=== PATIENT | female | born 1970 | race African-American/Black ===

== ENCOUNTER 2016-06-28 16:07 | Inpatient (IN) | payer OTHER ==
--- NOTE | ~2016-06-28 | HP ---
Unit #: [id number] #: [id number] Patient: LAURA HENDERSON [id number] [place] [address] [id number] I MR#: [id number] NAME: LAURA HENDERSON. ROOM: 73 Age: 45 Sex: F Admission Date: 06/28/2016 : 1970 Attending Physician: Edwin Rainey M.D. Admitting Physician: Edwin Rainey M.D. Primary Care Physician: Mar Sanchez M.D. HISTORY AND PHYSICAL HISTORY OF PRESENT ILLNESS Laura is a 45 year old admitted to [facility] because of her abuse of alcohol. She is detoxing. PAST MEDICAL HISTORY 1. Long history of alcohol abuse. 2. Rheumatoid arthritis by patient's report. 3. High blood pressure. PAST SURGICAL HISTORY Nothing reported. ALLERGIES No known drug allergies. SOCIAL HISTORY Smokes 1 pack per day. Drinks at least 2 pints of liquor on a daily basis and denies illicit drug use. FAMILY HISTORY Medically noncontributory. REVIEW OF SYSTEMS CONSTITUTIONAL: No fever or chills. HEENT: Denies any sore throat, ear pain or runny nose. CARDIOVASCULAR: Denies chest pain, irregular heart rhythm or palpitations. CHEST: Denies shortness of breath or cough. No hemoptysis. GASTROINTESTINAL: Denies nausea, vomiting, diarrhea or chronic constipation. ENDOCRINE: Denies history of increased thirst or urination. No recent significant weight loss or gain. GENITOURINARY: Denies dysuria, frequency, or hematuria. SKIN: Denies any rashes. HEMATOLOGIC: Denies history of increased bleeding or bruising. MUSCULOSKELETAL: Denies any hot, swollen joints. No generalized muscle pain. NEUROLOGIC: Denies problems with vision or speech. No frequent, severe headaches. No numbness, tingling or weakness in any extremities. Denies loss of bladder or bowel control. CURRENT MEDICATIONS 1. Detox protocol. 2. Winters one tab q.i.d. p.r.n. Unit #: [id number] #: [id number] Patient: LAURA HENDERSON PHYSICAL EXAMINATION GENERAL: Alert, well-nourished, in no apparent distress. VITAL SIGNS: Blood pressure 124/88, heart rate 88, respirations 16, temperature 98.6. WEIGHT: 147. HEIGHT: 5 feet 3 inches. SKIN: Warm and dry without rash or lesion. HEENT: Normocephalic. TMs not viewed. Oral and nasal passages clear. Conjunctivae clear. PERRLA. EOMs intact. NECK: Supple without lymphadenopathy or thyromegaly. HEART: Regular rate and rhythm without murmur. LUNGS: Clear. ABDOMEN: Soft, nontender. : Not done. EXTREMITIES: No evidence of cyanosis, clubbing or edema. Moves all without focal deficit. NEUROLOGICAL: Grossly within normal limits. Cranial Nerves: II: Visual kerns are intact. III, IV AND : Extraocular movements are intact. Pupils are equal, round and reactive to light. V: Facial sensation is grossly normal. VII: Facial movements and expression are normal. VIII: Auditory acuity grossly intact. IX, X: Uvula is midline. Phonation is normal. XI: Patient shrugs shoulders and turns head normally. XII: Tongue protrudes in the midline. Sensory and Motor Function: Sensory and motor sensation is grossly normal. Motor: moves all extremities well. Coordination: Gait is normal. Deep Tendon Reflexes: Intact. IMPRESSION 1. Psychiatric admission. 2. High blood pressure, not controlled on admission. She is admitted on no blood pressure medications. RECOMMENDATIONS PSYCHIATRIC: Per psychiatrist. MEDICAL: 1. See no contraindications to participate in facility's activities. 2. Detox per protocol. 3. Monitor blood pressure q. shift. Start Norvasc 5 mg 1 p.o. daily. Patient will need to follow up with PCP. MEDICAL PROGNOSIS Good. MEDICAL CONDITION Stable. Dictated by... Kai KhanAEsdras. for Suresh Hernandez/dayami TD: 06/29/2016 16:02 Unit #: [id number] #: [id number] Patient: LAURA HENDERSON JOB #: [id number] HISTORY AND PHYSICAL Page 1 of 1 X Gloria Christian HISTORY AND PHYSICAL
--- NOTE | ~2016-06-28 | PN ---
Unit #: [id number] #: [id number] Patient: LATESHA HENDERSON [id number] [facility] [address] [place] [address] [id number] I MR#: [id number] NAME: LATESHA HENDERSON. ROOM: [facility] Age: 45 Sex: F Admission Date: 06/28/2016 : 1970 Attending Physician: Edwin Rainey M.D. Admitting Physician: Edwin Rainey M.D. Primary Care Physician: Suresh Clarke PROGRESS NOTES DATE OF SERVICE 06/29/2016 DISCUSSION Ms. Sanchez is a 45-year-old female seen on 06/29/2016. Patient interviewed, chart reviewed, I obtained information from nursing staff. Patient continues to be sad, dysphoric, anxious, withdrawn, having withdrawal symptoms. Vital signs: Temperature 99, 88, 125/88. COMPLETE REVIEW OF SYSTEMS Unremarkable. MENTAL STATUS EXAMINATION GENERAL APPEARANCE: Patient dressed casually. ATTENTION SPAN AND CONCENTRATION: Fair. Oriented in time, place and person. MOOD AND AFFECT: Sad, dysphoric. SPEECH: Monotone. THOUGHT PROCESS: Paige. Patient denied any thoughts of harming self or others, but sad, depressed. RECENT AND REMOTE MEMORY: Poor. INSIGHT AND JUDGMENT: Poor. DIAGNOSES Alcohol use disorder, severe Mood disorder, NOS ASSESSMENT/PLAN Advised to start patient on Celexa 20 mg daily, Vistaril 25 mg three times a day for anxiety and trazodone 50 mg at bedtime for sleep. If needed, consider further adjustment on medication. Continue with the inpatient program. Dictated by... Suresh Arias/cathi Unit #: [id number] #: [id number] Patient: LATESHA HENDERSON TD: 06/30/2016 04:16 JOB #: [id number] [facility] PROGRESS NOTES Page 1 of 1 X Edwin Rainey MD PROGRESS NOTE
--- NOTE | ~2016-06-28 | PN ---
Unit #: [id number] #: [id number] Patient: LATESHA HENDERSON [id number] [facility] [address] [place] [address] [id number] I MR#: [id number] NAME: LATESHA HENDERSON ROOM: [facility] Age: 45 Sex: F Admission Date: 06/28/2016 : 1970 Attending Physician: Edwin Rainey M.D. Admitting Physician: Edwin Rainey M.D. Primary Care Physician: Suresh Clarke PROGRESS NOTES DATE 07/02/2016 DISCUSSION Ms. Sanchez is a 45-year-old female. The patient seen on 07/02/2016. The patient interviewed, chart reviewed. Obtained information from nursing staff. The patient continues to report having anxiety, trouble sleeping but denied any suicidal or homicidal ideation. Complete review of systems unremarkable. MENTAL STATUS EXAMINATION General appearance, the patient dressed casually. Attention span and concentration fair. Oriented to time, place and person. Mood and affect sad, dysphoric. Speech monotone. Thought process concrete. The patient denied any thoughts of harming self or others. Recent and remote memory poor. Insight and judgement poor. DIAGNOSES Alcohol use disorder severe Mood disorder NOS ASSESSMENT/PLAN Advise to continue with current medication and detox protocol. If needed consider further adjustment of medication. Dictated by... Suresh Arias/noreen TD: 07/03/2016 04:37 JOB #: [id number] Unit #: [id number] #: [id number] Patient: LATESHA HENDERSON PROGRESS NOTES Page 1 of 1 X Edwin Rainey MD X PROGRESS NOTE
--- NOTE | ~2016-06-28 | PN ---
Unit #: [id number] #: [id number] Patient: LATESHA HENDERSON [id number] [facility] [address] [place] [address] [id number] I MR#: [id number] NAME: LATESHA HENDERSON ROOM: [facility] Age: 45 Sex: F Admission Date: 06/28/2016 : 1970 Attending Physician: Edwin Rainey M.D. Admitting Physician: Edwin Rainey M.D. Primary Care Physician: Suresh Clarke PROGRESS NOTES DATE OF SERVICE 06/30/2016 DISCUSSION Ms. Sanchez is a 45-year-old female. The patient interviewed, chart reviewed. Obtained information from nursing staff. The patient was compliant, cooperative. Mood sad, dysphoric. Reported still having withdrawal symptom, restlessness, and severe anxiety. The patient reported mood is anxious, nervous, labile. Severe anxiety. Complete Review of Systems: Unremarkable. MENTAL STATUS EXAMINATION General Appearance: The patient dressed casually. Attention span, concentration: Fair. Oriented in place and person. Mood and affect: Sad, dysphoric. Speech: Monotone. Thought process: [place]. The patient denied any thoughts of harming self or others but guarded. Recent and remote memory: Poor. Insight and judgment: Poor. DIAGNOSIS Alcohol use disorder, severe, F10.20 ASSESSMENT/PLAN Advised to continue with current medication and therapeutic protocol. If needed, consider further adjustment of medication. Dictated by... Suresh Arias/michelle TD: 07/01/2016 06:56 JOB #: [id number] Unit #: [id number] #: [id number] Patient: LATESHA HENDERSONJESÚS PROGRESS NOTES Page 1 of 1 X Edwin Rainey MD PROGRESS NOTE
--- NOTE | ~2016-06-28 | PA ---
Unit #: [id number] #: [id number] Patient: LATESHA HENDERSON [id number] [place] [address] [id number] I MR#: [id number] NAME: LATESHA HENDERSON ROOM: 73 Age: 45 Sex: F Admission Date: 06/28/2016 : 1970 Date of Assessment: Attending Physician: Edwin Rainey M.D. Admitting Physician: Edwin Rainey M.D. Primary Care Physician: Mar Sanchez M.D. PSYCHIATRIC ASSESSMENT INFORMANTS The patient's reliability, fair; chart reliability, good. CHIEF COMPLAINT Depression and alcohol abuse. HISTORY OF PRESENT ILLNESS Ms. Sanchez is a 45-year-old female, admitted with the above-mentioned complaint. The patient is currently unemployed, has a son 11. The patient presented with the alcohol use and reported drinking at least 2 pints a day for the last year. The patient reported that she is uncertain how much actually drinks because she blacks out after the second bottle. The patient scored for 15 on CIWA score, increased blood pressure, skin crawling, nausea, tremor, anxiety, headache. The patient reported poor sleep, depressed mood, loss of appetite, loss of job on Sunday, missing work, not remembering things. The patient reported feeling sad and depressed, but denied any suicidal or homicidal ideation. The patient reported started feeling depressed after the of her father 2 years ago. The patient needing inpatient admission at this time for psychiatric stabilization. PAST PSYCHIATRIC HISTORY Remarkable for history of outpatient services, details unknown at this time. FAMILY HISTORY AND SOCIAL HISTORY The patient has a good support system. History of substance abuse in father according to the intake reports. No known history of any abuse or legal problem. MEDICAL HISTORY Remarkable for hypertension, rheumatoid arthritis, chronic pain. MEDICATIONS The patient is on Lortab 10 mg q.i.d., amitriptyline 25 mg p.r.n., multivitamin, lisinopril/hydrochlorothiazide combination for hypertension. ALLERGIES No known drug allergies. SUBSTANCE ABUSE HISTORY The patient reported tobacco use, age of onset 16; alcohol, age of onset 13; marijuana, age of onset 19; crack cocaine, age of onset 19. Longest Unit #: [id number] #: [id number] Patient: LATESHA HENDERSON period of sobriety 9 months. Last period of sobriety was 11 years ago. The patient reported history of blackouts. No history of any HIV, hepatitis, history of withdrawal symptoms. No history of any IV drug use. Currently, reporting anxiety, grieving, insomnia, tremor, racing thoughts. REVIEW OF SYSTEMS HEENT: Eyes, clear. Ears, nose, mouth, and throat; clear. CARDIOVASCULAR: Unremarkable. RESPIRATORY: Unremarkable. GI: Unremarkable. : Unremarkable. SKIN: Unremarkable. LYMPH NODE: Unremarkable. NEUROLOGIC: Unremarkable. ENDOCRINE: Unremarkable. HEMATOLOGIC: Unremarkable. ALLERGIC/IMMUNOLOGIC: Unremarkable. MUSCULOSKELETAL: Muscle strength and tone, no atrophy or abnormal movement. Gait normal except as mentioned above. MENTAL STATUS EXAMINATION CONSTITUTIONAL: Measurement of vital signs; temperature 99, pulse 88, respirations 20, 100% oxygen saturation, blood pressure 125/88. Height 5 feet 3 inches, weight 147 pounds. GENERAL APPEARANCE: The patient dressed casually. The patient did not show any facial deformity. MUSCULOSKELETAL: Please see above. PSYCHIATRIC EXAMINATION Description of speech, regular rate. Description of thought process, goal directed. Description of association, intact. Description of abnormal psychotic thinking; the patient denied any hallucination or delusions or any suicidal or homicidal ideation, but sad and depressed mood. Description of the patient's judgment; concerning everyday activity, poor. Social situation, poor. Concerning psychiatric condition, poor. Complete mental status examination; oriented in time, place, and person. Recent and remote memory, fair. Attention span and concentration, fair. Language, able to name object and repeat phrases. Fund of knowledge, aware of current event and passive vocabulary intact. Mood and affect, sad and dysphoric. Insight and judgment, fair to poor. ASSETS AND LIABILITIES Assets; the patient is articulate and able to take care of her ADL. Liability, history of depression and substance abuse. ADMITTING DIAGNOSES Psychiatric: 1. Alcohol use disorder, severe, F10.20. 2. Mood disorder, not otherwise specified, F32.9. Secondary diagnosis: Deferred. Medical diagnoses: Rheumatoid arthritis and hypertension. Stressors: Psychosocial stressors. PSYCHIATRIC PLAN AND TREATMENT GOAL 1. Advised to admit the patient on the inpatient unit. Provide safe, Unit #: [id number] #: [id number] Patient: LATESHA HENDERSON supportive, and structured environment. 2. Ordered labs; CBC, CMP, UA, and UDS. 3. Detox precautions and detox protocol. Plan to consider SSRI for depression. The patient to attend all the programing on the inpatient unit. If needed, consider change in medication. Treatment goal to attain euthymic mood, gain insight into her problem, and learn coping skills. DISCHARGE PLAN Plan to stabilize the patient and consider followup in outpatient program. ESTIMATED LENGTH OF STAY 5 days. Dictated by... Edwin Rainey M.D. LANI/horacio TD: 06/30/2016 03:04 JOB #: [id number] PSYCHIATRIC ASSESSMENT Page 1 of 1 X Edwin Rainey MD X PSYCHIATRIC ASSESSMENT
--- NOTE | ~2016-06-28 | PN ---
Unit #: [id number] #: [id number] Patient: LATESHA HENDERSON [id number] [facility] [address] [place] [address] [id number] MR#: [id number] NAME: LATESHA HENDERSON ROOM: [facility] Age: 45 Sex: F Admission Date: 06/28/2016 : 1970 Attending Physician: Edwin Rainey M.D. Admitting Physician: Edwin Rainey M.D. Primary Care Physician: Suresh Clarke PROGRESS NOTES DATE OF SERVICE: 07/01/2016 DISCUSSION Ms. Sanchez is a 45-year-old female, seen on 07/01/2016. The patient interviewed, chart reviewed, and obtained information from nursing staff. The patient was compliant, cooperative. The patient reports medication is helping her. Mood is sad, dysphoric, flat affect, withdrawn, isolative, participating in program. The patient scored 9 on CIWA score, complaining of nausea, mild tremor, anxiety, agitation, headache. REVIEW OF SYSTEMS Complete review of systems is unremarkable. MENTAL STATUS EXAMINATION General appearance, the patient dressed casually. Attention span and concentration, poor. Oriented in place and person. Mood and affect, sad, dysphoric. Speech, monotone. Thought process, concrete. The patient denied any thoughts of harming self or others. Recent and remote memory, poor. Insight and judgment, poor. DIAGNOSIS Alcohol use disorder, moderate, F10.20. ASSESSMENT AND PLAN Advised to continue with current medication and therapeutic protocol. If needed, consider further adjustment of medication. Dictated by... Suresh Arias/horacio TD: 07/03/2016 04:00 JOB #: [id number] Unit #: [id number] #: [id number] Patient: LATESHA HENDERSON PROGRESS NOTES Page 1 of 1 X Edwin Rainey MD PROGRESS NOTE
--- NOTE | ~2016-06-28 | DS ---
Unit #: [id number] #: [id number] Patient: LATESHA HENDERSON [id number] [facility] [address] [place] [address] [id number] I MR#: [id number] NAME: LATESHA HENDERSON. ROOM: 73 Age: 45 Sex: F Admission Date: 06/28/2016 : 1970 Discharge Date: 07/03/2016 Attending Physician: Edwin Rainey M.D. Primary Care Physician: Mar Sanchez M.D. DISCHARGE SUMMARY REASON FOR ADMISSION Depression and alcohol abuse. DIAGNOSTIC STUDIES LABORATORY RESULTS: Unremarkable except urine drug screen positive for benzodiazepine and opiates. HOSPITAL COURSE The patient was admitted to inpatient unit on 06/28/2016 and discharged on 07/03/2016. The patient was treated on the inpatient unit with group therapy, individual therapy, medication management, detox protocol, and detox monitoring. The patient responded well with the above modalities of treatment. Subsequently, the patient was discharged with a plan to follow up in outpatient program. DISCHARGE MEDICATIONS Doxepin 100 mg at bedtime for sleep, Vistaril 50 mg t.i.d. for anxiety. The patient to continue with her home pain medication Lortab for pain. DISCHARGE DIAGNOSES Psychiatric: Alcohol use disorder, severe, F10.20; mood disorder, not otherwise specified, F32.9. Secondary diagnosis: Deferred. Medical diagnosis: Rheumatoid arthritis, hypertension. Stressors: Psychosocial stressors. DISCHARGE INSTRUCTIONS The patient to follow up in outpatient clinic as per psych social worker. CONDITION ON DISCHARGE The patient was pleasant and cooperative. Denied any psychotic symptom or any suicidal ideation. PROGNOSIS Guarded. DIET AND ACTIVITY As tolerated. Unit #: [id number] #: [id number] Patient: LATESHA HENDERSON Dictated by... Suresh AriasC/horacio TD: 07/03/2016 17:42 JOB #: [id number] DISCHARGE SUMMARY Page 1 of 1 X Edwin Rainey MD X DISCHARGE SUMMARY
[~2016-06-28 16:07] MED LIST: ASPIRINEC PO; CERTAGEN PO; FLEXERIL PO; INDOCIN SR75 MG PO; LORTAB 10/500 T1 TAB PO; LORTAB 7.5-5001 TAB PO; ROBAXIN PO; ULTRAM PO; ZESTORETIC 10/11 TAB PO
[2016-06-29 12:35] LABS: BASOPHIL# 0.1 X10e3 (0-0.3); BASOPHIL% 0.9 % (0-2.5); EOSINOPHIL# 0.1 X10e3 (0-0.7); EOSINOPHIL% 1.6 % (0.0-7.0); HEMATOCRIT 26.2 % (35.0-45.0); HEMOGLOBIN 7.6 gm/dL (12.0-16.0); LYMPHOCYTE# 1.4 X10e3 (1.0-3.5); LYMPHOCYTE% 18.6 % (17.0-45.0); MEAN CELL VOLUME 73.5 FL (83-96); MEAN CORPUSCULAR HEMOGLOBIN 21.4 PG (28-34); MEAN CORPUSCULAR HGB CONC 29.2 g/dL (30-36); MEAN PLATELET VOLUME 8.5 FL (6.5-11.5); MONOCYTE# 0.6 X10e3 (0-1.0); MONOCYTE% 8.3 % (3.0-12.0); NEUTROPHIL# 5.3 X10e3 (1.5-7.1); NEUTROPHIL% 70.6 % (40-75); PLATELET COUNT 173 X10e3 (140-420); RED BLOOD COUNT 3.57 X10e (3.90-5.30); RED CELL DISTRIBUTION WIDTH 19.4 % (11.0-15.5); WHITE BLOOD COUNT 7.4 X10e3 (4.0-10.5)
[2016-06-29 12:36] LABS: DIFF IND YES
[2016-06-29 12:50] LABS: ALBUMIN SERUM 3.8 g/dL (3.5-5.0); BILIRUBIN,TOTAL 0.3 mg/dL (0.2-2.0); BUN/CREATININE RATIO 13.75; CALCIUM SERUM 8.7 mg/dL (8.4-10.2); CREATININE SERUM 0.8 mg/dL (0.6-1.4); GLOM FILT RATE Estimated 102.6 mL/min (>60); PROTEIN TOTAL SERUM 6.9 g/dL (6.0-8.3)
[2016-06-29 12:52] LABS: ANISOCYTOSIS MOD; HYPOCHROMIA SL; MICROCYTOSIS SL; PLATELET ESTIMATE NORMAL (NORMAL)
[2016-06-30 09:41] LABS: URINE APPEARANCE CLOUDY; URINE BILIRUBIN NEG (NEG); URINE BLOOD NEG (NEG); URINE COLOR DK YELLOW; URINE GLUCOSE NEG (NEG); URINE KETONE NEG (NEG); URINE LEUKOCYTE ESTERASE 2+ (NEG); URINE NITRATE NEG (NEG); URINE PH 5.5 (5-8); URINE PROTEIN NEG (NEG); URINE SPECIFIC GRAVITY 1.023 (1.003-1.035)
[2016-06-30 09:44] LABS: URBCS1 AUWI 0-2 /[HPF] (0-2); URINE SQUAMOUS EPITHELIAL CELL MANY /[HPF]
[2016-06-30 10:27] LABS: AMPHETAMINE NEG (NEG); BARBITURATES NEG (NEG); BENZODIAZEPINES POS (NEG); COCAINE NEG (NEG); MARIJUANA NEG (NEG); OPIATES POS (NEG); TRICYCLIC ANTIDEPRESSANTS POS (NEG); U METHADONE NEG (NEG); URINE AMORPHOUS SEDIMENT AMORP URATES
== END 2016-07-03 09:50 | DRG 897 ==
LOC: P1E 16:07
PROVIDERS: Psychiatry & Neurology Psychiatry
PROC: HZ2ZZZZ Detoxification Services for Substance Abuse Treatment (ICD-10-PCS; principal; 2016-06-28)
DX: F10.20 Alcohol dependence, uncomplicated (principal); F39 Unspecified mood [affective] disorder; I10 Essential (primary) hypertension; M06.9 Rheumatoid arthritis, unspecified; F17.210 Nicotine dependence, cigarettes, uncomplicated
CPT/HCPCS: 80053; 80307; 81003; 84703; 85025; 86592; J2550

== ENCOUNTER 2016-10-19 16:00 | Emergency (ER) | payer OTHER ==
[~2016-10-19] VITALS: Ht 157.5 cm; Wt 70.3 kg
== END 2016-10-19 17:10 | disposition left against medical advice (07) ==
LOC: CED 16:00
DX: Z53.21 Procedure and treatment not carried out due to patient leaving prior to being seen by health care provider (principal)